=== PATIENT | female | born 1980 | race Caucasian/White ===

== ENCOUNTER 2025-05-21 07:45 | Inpatient (IN) ==
[2025-05-21] MEDS ORDERED: OXYTOCIN 30 UNITS/NSS 30 UNITS/500 ML BAG IV PRN (09:10)
[2025-05-21] MEDS ORDERED: LIDOCAINE 1% LOCAL 20 ML VIAL INFIL PRN (09:10)
[2025-05-21] MEDS ORDERED: CALCIUM CARBONATE 500 MG CHEWABLE TAB PO PRN (09:10)
--- NOTE | 2025-05-21 09:33 | History & Physical Report ---
Date of Service May 21, 2025 Assessment & Plan (1) AMA (advanced maternal age) multigravida 35+: Plan: induction of labor/Cervidil for ripening Admission and Anticipated Discharge Date Admission Date: May 21, 2025 History of Present Illness Chief Complaint: induction of labor Primary Care Provider: Em Temple DO 45 F P0000 at 39 weeks presents for IOL. GBS is negative. Allergies Allergy/AdvReac Type Severity Reaction Status Date / Time aspirin Allergy Severe Rash Verified 05/21/25 08:34 Sulfa (Sulfonamide Allergy Mild Rash Unverified 05/21/25 08:34 Antibiotics) Home Medications Medication Instructions Recorded Confirmed Type clindamycin phosphate 1 % topical 1 applic topical BID PRN Other 06/18/23 05/21/25 History gel multivitamin 1 tab PO QAM 06/18/23 05/21/25 History tretinoin 0.1 % topical cream 1 applic topical HS PRN Other 06/18/23 05/21/25 History Patient History Medical History Embryo present in uterus Embryo Transfered September 05/2025. History of PCOS Surgical History Hx of hernia repair H/O wisdom tooth extraction Social History Smoking Status: Never smoker Hx Alcohol Use: No Hx Substance Use: No Preferred Language: [place] Communication Ability: Effective Soft Sugar Cutter Required: No Beliefs That Will Affect Care: None marital status: Current Living Situation: Family Current Living Situation Comment: Patient lives with her and adopted son at home. 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 Review of Systems All systems reviewed & are unremarkable except as noted in HPI & below Physical Exam Constitutional: WD/WN, vitals as above Eyes: PERRL, conjunctivae normal, anicteric sclerae Respiratory: normal respiratory effort Cardiovascular: Rate/Rhythm: regular rate and regular rhythm Gastrointestinal (Abdomen): Inspection/Auscultation: abdomen normal to inspection Musculoskeletal: Extremities: extremities normal to inspection Skin: no rashes, warm and dry Neurologic: patellar DTR's 2+ bilat, sensation intact Psychiatric: A+Ox3, euthymic affect Genitourinary: no vaginal lesions, no adnexal mass Manual OB Exam: + cervical dilation fingertip, + cervical effacement 50% and + station high OB Exam Monitor Tracing: + external FHT monitor used, + external uterine monitor used, + category I and + normal FHT variability Cervidil 10 mg placed vaginally Results & Data Vital Signs (Past 12 Hours) Vital Signs Temp Pulse Resp BP 05/21/25 08:35 37.1 C 67 18 116/73 05/21/25 08:04 67 116/73 Laboratory Results Laboratory Results - last 72 hr 05/21/25 09:31 WBC 8.41 RBC 4.09 L Hgb 12.8 Hct 37.3 MCV 91.2 MCH 31.3 MCHC 34.3 RDW Std Deviation 44.2 RDW Coeff of Naty 13.3 Plt Count 167 MPV 11.5 Code Status & VTE Plan VTE Prophylaxis Plan VTE Prophylaxis will be ordered: No Monitoring External Monitor Cat 1 (1) AMA (advanced maternal age) multigravida 35+ Trimester: third trimester Qualified Code(s): O09.523 - Supervision of elderly multigravida, third trimester
[2025-05-21] MEDS: DINOPROSTONE 10 MG INSERT PV ONE (09:45)
[2025-05-21 09:47] LABS: Hematocrit (blood only) 37.3 % (37.0-47.0); Hemoglobin 12.8 g/dL (12.0-16.0); Mean Corpuscular Hemoglobin 31.3 pg (25.0-34.0); Mean Corpuscular Volume 91.2 fL (80.0-100.0); Platelet Count 167 K/uL (130-400); RDW Standard Deviation 44.2 fL (36.4-46.3); Red Blood Count 4.09 M/uL (4.20-5.40); White Blood Count 8.41 K/ul (4.8-10.8)
[2025-05-21] MEDS ORDERED: BUTORPHANOL TARTRATE 1 MG/ML VIAL IV PRN (13:25)
--- NOTE | 2025-05-21 21:50 | Labor Progress Brief Note ---
Date of Service May 21, 2025 Assessment & Plan Admission and Anticipated Discharge Date Admission Date: May 21, 2025 Physical Exam Genitourinary: Manual OB Exam: + cervical dilation fingertip, + cervical effacement 60% and + station high OB Exam Monitor Tracing: + external FHT monitor used, + external uterine monitor used, + category I and + normal FHT variability Cervidil removed. cervix softening. Will start Cytotec if contractions space out. Results & Data Vital Signs (Past 12 Hours) Vital Signs Temp Pulse Resp BP 05/21/25 19:50 36.8 C 16 05/21/25 19:50 61 05/21/25 19:50 123/75 05/21/25 17:07 60 05/21/25 17:07 122/75 05/21/25 17:06 18 05/21/25 17:06 36.7 C 18 05/21/25 12:49 16 05/21/25 12:49 36.9 C 16 05/21/25 12:49 62 05/21/25 12:49 129/75
[2025-05-22] MEDS: miSOPROStol 50 MCG TAB PO SCH (01:14)
[2025-05-22] MEDS: MULTIVITAMIN TAB PO SCH (08:43)
--- NOTE | 2025-05-22 09:20 | Labor Progress Brief Note ---
Date of Service May 22, 2025 Assessment & Plan Admission and Anticipated Discharge Date Admission Date: May 21, 2025 Physical Exam Genitourinary: Manual OB Exam: + cervical dilation 1 cm, + cervical effacement 50% and + station high OB Exam Monitor Tracing: + external FHT monitor used, + external uterine monitor used, + category I and + normal FHT variability Cervix softening. will continue ripening with Cytotec. Results & Data Vital Signs (Past 12 Hours) Vital Signs Temp Pulse Resp BP 05/22/25 07:04 60 121/74 05/22/25 07:03 18 05/22/25 07:03 36.7 C 18 05/22/25 04:14 36.8 C 60 16 126/75 05/21/25 22:46 18 05/21/25 22:46 36.7 C 18 05/21/25 22:46 68 05/21/25 22:46 121/68
--- NOTE | 2025-05-22 15:36 | Labor Progress Brief Note ---
Date of Service May 22, 2025 Assessment & Plan Admission and Anticipated Discharge Date Admission Date: May 21, 2025 Physical Exam Genitourinary: Manual OB Exam: + cervical dilation 1 cm, + cervical effacement 50% and + station high OB Exam Monitor Tracing: + external FHT monitor used, + external uterine monitor used, + category I and + normal FHT variability Lugo placed trans-cervically with 40 ml. saline in balloon. Will continue with Cytotec. Results & Data Vital Signs (Past 12 Hours) Vital Signs Temp Pulse Resp BP 05/22/25 15:33 65 154/88 H 05/22/25 14:53 63 118/70 05/22/25 11:06 63 126/71 05/22/25 07:04 60 121/74 05/22/25 07:03 18 05/22/25 07:03 36.7 C 18 05/22/25 04:14 36.8 C 60 16 126/75
[2025-05-22] MEDS: ACETAMINOPHEN 325 MG TAB PO PRN (19:04)
--- NOTE | 2025-05-22 20:39 | Obstetrical Progress Note ---
Date of Service May 22, 2025 Assessment & Plan Admission and Anticipated Discharge Date Admission Date: May 21, 2025 Subjective Patient seen and examined. I got signout from Dr. Saavedra who admitted her yesterday for induction of labor for postdates, AMA, IVF . She has received Cervidil for cervical ripening yesterday and continued with p.o. Cytotec today, placed Lugo balloon in the afternoon. Last dose of Cytotec was at 8 PM (5th dose) Patient has been feeling irregular contractions are not very painful yet she has not taking anything for pain. She denies leakage of fluids or vaginal bleeding. She reports good movements. Patient denies medical problems, surgeries, no history of STDs, no smoking alcohol or drug use. She was started on low- dose aspirin but unable to take it due to reaction which was rash. She has been taking vitamins only. GBS is negative. Vital signs today afebrile, heart rate category 1, Long Barn shows contractions every 2 to 6 minutes, vaginal exam, balloon is inside cervix feels very thin and about 80% effaced and 1 to 2 cm, mild traction was applied to the Lugo catheter, discussed the findings induction of labor with expectant, plan will be to start low-dose oxytocin per protocol after midnight, 4 hours from last dose of p.o. Cytotec, Discussed the pain management including IV pain medications, epidural. Patient does not want IV pain medication and plans to get epidural when she related. Continue to monitor closely, All questions were answered. Results & Data Vital Signs (Past 12 Hours) Vital Signs Temp Pulse Resp BP O2 Del Method 05/22/25 19:00 37.0 C 18 05/22/25 19:00 Room Air 05/22/25 18:59 37.0 C 71 18 126/78 05/22/25 17:29 67 134/78 05/22/25 15:34 61 140/81 05/22/25 15:33 65 154/88 H 05/22/25 15:32 18 05/22/25 15:32 36.8 C 18 05/22/25 15:32 18 05/22/25 15:32 36.7 C 18 05/22/25 14:53 63 118/70 05/22/25 11:06 63 126/71
--- NOTE | 2025-05-23 00:20 | Obstetrical Progress Note ---
Date of Service May 23, 2025 Assessment & Plan Admission and Anticipated Discharge Date Admission Date: May 21, 2025 Subjective Patient is reevaluated. She ambulated then came back. Feels irregular contractions, they are not painful at. heart rate category 1, Bedside ultrasound was done by myself and confirmed vertex presentation, placenta anterior, AFV is normal, heart rate 140s, Continue to monitor closely, Will start low-dose oxytocin per protocol to augment contractions, All questions were answered. Results & Data Vital Signs (Past 12 Hours) Vital Signs Temp Pulse Resp BP O2 Del Method 05/22/25 23:10 36.9 C 58 L 18 125/64 05/22/25 19:00 37.0 C 18 05/22/25 19:00 Room Air 05/22/25 18:59 37.0 C 71 18 126/78 05/22/25 17:29 67 134/78 05/22/25 15:34 61 140/81 05/22/25 15:33 65 154/88 H 05/22/25 15:32 18 05/22/25 15:32 36.8 C 18 05/22/25 15:32 18 05/22/25 15:32 36.7 C 18 05/22/25 14:53 63 118/70
[2025-05-23] MEDS: LACTATED RINGER'S 1,000 ML IV PRN (00:29)
[2025-05-23] MEDS: OXYTOCIN 30 UNITS/NSS 30 UNITS/500 ML BAG IV PRN (00:29)
--- NOTE | 2025-05-23 07:19 | Obstetrical Progress Note ---
Date of Service May 23, 2025 Assessment & Plan Admission and Anticipated Discharge Date Admission Date: May 21, 2025 Subjective Patient slept overnight, has not woken up with contractions. Oxytocin was started and he has been increased per protocol. she has not received anything for pain. Vital signs stable afebrile, heart rate category 1, Vaginal exam, Lugo bulb is still in, deflated 10 mL and taking out, cervix is 4 cm dilated, 50% effaced, head is at -2 station with a tight bulging bag. I offered her epidural first and then AROM but patient desired AROM now and then she will decide whether she will need epidural or not. AROM done, abundant clear fluid was obtained, patient tolerated well. Continue to monitor closely. Results & Data Vital Signs (Past 12 Hours) Vital Signs Temp Pulse Resp BP 05/23/25 07:03 59 L 113/65 05/23/25 06:30 16 05/23/25 06:30 16 05/23/25 06:00 16 05/23/25 06:00 16 05/23/25 05:31 67 115/68 05/23/25 05:30 16 05/23/25 05:30 16 05/23/25 04:31 71 120/74 05/23/25 03:33 36.9 C 61 18 126/74 05/23/25 02:23 60 134/72 05/23/25 01:30 68 126/73 05/23/25 01:00 18 05/23/25 01:00 18 05/23/25 00:29 63 130/75 05/22/25 23:10 36.9 C 58 L 18 125/64
--- NOTE | 2025-05-23 08:13 | Anesthesiology Consultation ---
Date of Service May 23, 2025 Assessment & Plan Chart Review Chart Review: Acceptable Risk for Surgery and Patient NOT seen in Pre Admission Testing Consults Requested none ASA ASA2 Proposed Anesthesia Anesthesia Type: Labor Epidural and CSE History Height/Weight Height: 5 ft 5 in Weight: 66.617 kg Allergies Allergy/AdvReac Type Severity Reaction Status Date / Time aspirin Allergy Severe Rash Verified 05/21/25 08:34 Sulfa (Sulfonamide Allergy Mild Rash Verified 05/22/25 19:03 Antibiotics) Medications Home Medications Medication Instructions Recorded Confirmed Last Taken clindamycin phosphate 1 % topical 1 applic topical BID PRN Other 06/18/23 05/21/25 05/07/25 gel multivitamin 1 tab PO QAM 06/18/23 05/21/25 05/21/25 06:30 tretinoin 0.1 % topical cream 1 applic topical HS PRN Other 06/18/23 05/21/25 Unknown Active Medications Generic Name Dose Route Start Last Admin Trade Name Freq PRN Reason Stop Dose Admin Acetaminophen 650 mg 05/21/25 13:25 05/23/25 05:43 Acetaminophen 325 Mg Tab PO 06/20/25 13:24 650 mg Q4H PRN Administration Pain Lactated Ringer's 1,000 mls @ 125 mls/hr 05/21/25 09:10 05/23/25 08:12 Lr IV 05/23/25 09:09 999 mls/hr .Q8H PRN Administration L&D Protocol Protocol Oxytocin 30 units in 500 mls @ 7 mls/hr 05/23/25 00:30 05/23/25 07:00 Pitocin 30 Units/Nss IV 05/24/25 00:29 0.48 units/hr .Q24H PRN 8 mls/hr Labor Induction/Augmentation Titration Protocol 0.42 UNITS/HR Miscellaneous 1 each 05/21/25 16:00 05/22/25 08:51 Clindamycin 1% Gel--Order Awaiting Action N/A 06/20/25 15:59 Not Given QS SCOTT Misoprostol 50 mcg 05/22/25 00:00 05/23/25 00:34 Misoprostol 50 Mcg Tab PO 06/21/25 00:00 Not Given Q4 SCOTT Multivitamins 1 tab 05/22/25 09:00 05/22/25 08:43 Multivitamin Tab PO 06/21/25 08:59 1 tab QAM SCOTT Administration Past Medical History Medical History Embryo present in uterus Embryo Transfered September 05/2025. History of PCOS Exercise / Class Metabolic Activity II 4-5 Yardwork/Stairs/Walk up hill Past Surgical History Surgical History Hx of hernia repair H/O wisdom tooth extraction Past Anesthesia History No Hx of Anesthesia Complications and No Family Hx of Anesthesia Complications History of PONV No Hx of PONV and No Hx of Motion Sickness Social History Smoking Status: Never smoker Hx Alcohol Use: No Hx Substance Use: No Physical Exam Vital Signs Last Vital Signs Temp 36.7 C 05/23/25 07:15 Pulse 80 05/23/25 08:08 Resp 18 05/23/25 07:15 BP 113/65 05/23/25 07:03 Pulse Ox 100 05/23/25 08:08 O2 Del Method Room Air 05/22/25 19:00 Testing Laboratory Results 05/21/25 09:31
[2025-05-23] MEDS ORDERED: BUPIVACAINE 0.25% PF 30 ML VIAL EPI PRN (08:51)
[2025-05-23] MEDS: BUPIVACAINE 0.25% PF 30 ML VIAL ONE (08:51)
[2025-05-23] MEDS ORDERED: NALOXONE HCL 1 MG in SODIUM CHLORIDE 0.9% 1,000 ML IV PRN (08:51)
[2025-05-23] MEDS ORDERED: NALBUPHINE HCL INJ 10 MG/ML AMP IV PRN (08:51)
[2025-05-23] MEDS ORDERED: SODIUM CHLORIDE 0.9% PF INJ 10 ML VIAL EPI PRN (08:51)
[2025-05-23] MEDS ORDERED: ROPIVACAINE 0.5% PF 5 MG/ML 20 ML VIAL EPI PRN (08:51)
[2025-05-23] MEDS: LIDOCAINE 2%/EPINEPHRINE 1:200,000 20 ML PF ONE (08:51)
[2025-05-23] MEDS ORDERED: PROMETHAZINE 6.25 MG/50.25 ML BAG IV PRN (08:51)
[2025-05-23] MEDS ORDERED: NALOXONE HCL 0.4 MG/1 ML VIAL/CARP IV PRN ×2 (08:51→16:39)
[2025-05-23] MEDS ORDERED: LIDOCAINE 2% MPF LOCAL 5 ML VIAL EPI PRN (08:51)
[2025-05-23] MEDS ORDERED: diphenhydrAMINE 50 MG/ML VIAL IV PRN (08:51)
[2025-05-23] MEDS: SODIUM CHLORIDE 0.9% PF INJ 10 ML VIAL ONE (08:52)
[2025-05-23] MEDS: fentANYL 2 MCG/ML BUPIVacaine 0.125%-NSS 100ML BAG ONE (08:53)
[2025-05-23] MEDS ORDERED: NURSING L&D Epidural Breakthrough Pain Update ONE (11:21)
[2025-05-23] MEDS: BUPIVACAINE 0.25% PF 30 ML VIAL EPI STA (12:00)
--- NOTE | 2025-05-23 12:06 | Anesthesia Procedure Note ---
Date of Service May 23, 2025 Anesthesia Epidural Re-Dose Vital Signs Temp Pulse Resp BP Pulse Ox O2 Del Method 36.9 C 69 16 139/101 H 100 Room Air 05/23/25 11:00 05/23/25 12:03 05/23/25 11:30 05/23/25 12:00 05/23/25 12:03 05/22/25 19:00 Notes Pain Intensity: 4 Dilatation (cm): 5.5 Effacement (%): 90 After Epidural Re-Dose Mental Status: alert / awake / arousable Pain: improving with treatment Airway Patency, RR, SpO2: stable & adequate BP & HR: stable & adequate Additional Notes: Pt w/labor pain; Epidural bolused w/ 12 ml 0.17% bupivacaine + 100 mcgs fentanyl using incremental asp. and injections.
[2025-05-23] MEDS: ONDANSETRON INJ 2 MG/ML 2 ML VIAL IV PRN (14:00)
[2025-05-23] MEDS: fentANYL 2 MCG/ML BUPIVacaine 0.125%-NSS 100ML BAG EPI PRN (14:11)
--- NOTE | 2025-05-23 15:20 | History & Physical Bridge Note ---
Date of Service May 23, 2025 History & Physical Bridge Note I have examined the patient, reviewed the History & Physical and in the interval since the performance of the History & Physical I have noted the following changes of clinical significance: no changes noted
--- NOTE | 2025-05-23 15:37 | Labor Progress Brief Note ---
Date of Service May 23, 2025 Subjective patient with retained placent greater than 30 minutes Assessment & Plan (1) Retained placenta or amniotic membrane after delivery without hemorrhage: Plan: Discussed with patient need to manually remove placenta in OR and possible curettage of uterus Consents signed Admission and Anticipated Discharge Date Admission Date: May 21, 2025 Results & Data Vital Signs (Past 12 Hours) Vital Signs Temp Pulse Resp BP Pulse Ox 05/23/25 15:32 96 H 126/69 05/23/25 15:17 82 126/87 05/23/25 15:02 87 134/80 05/23/25 14:57 99 H 120/77 05/23/25 14:43 80 98 05/23/25 14:38 99 H 100 05/23/25 14:33 96 H 100 05/23/25 14:32 96 H 169/103 H 05/23/25 14:30 16 05/23/25 14:30 37.0 C 16 05/23/25 14:28 88 100 05/23/25 14:22 84 100 05/23/25 14:18 91 H 100 05/23/25 14:13 113 H 98 05/23/25 14:08 104 H 96 05/23/25 14:03 102 H 98 05/23/25 14:02 100 H 130/81 05/23/25 14:00 18 05/23/25 14:00 18 05/23/25 13:58 118 H 97 05/23/25 13:53 113 H 97 05/23/25 13:48 97 H 97 05/23/25 13:43 96 H 99 05/23/25 13:38 102 H 99 05/23/25 13:33 81 96 05/23/25 13:32 76 136/82 05/23/25 13:30 16 05/23/25 13:30 16 05/23/25 13:28 77 97 05/23/25 13:23 76 97 05/23/25 13:18 98 H 99 05/23/25 13:17 85 130/83 05/23/25 13:13 78 100 05/23/25 13:08 76 100 05/23/25 13:03 80 97 05/23/25 13:02 75 131/73 05/23/25 13:00 16 05/23/25 13:00 16 05/23/25 12:58 82 99 05/23/25 12:53 82 100 05/23/25 12:48 83 125/68 100 05/23/25 12:43 85 100 05/23/25 12:37 88 98 05/23/25 12:33 82 145/74 H 99 05/23/25 12:30 16 05/23/25 12:30 36.7 C 16 05/23/25 12:28 98 H 99 05/23/25 12:23 75 99 05/23/25 12:18 71 99 05/23/25 12:16 70 124/76 05/23/25 12:14 68 125/77 05/23/25 12:13 75 99 05/23/25 12:12 71 123/74 05/23/25 12:10 68 124/78 05/23/25 12:08 72 121/71 100 05/23/25 12:05 75 124/77 05/23/25 12:04 67 133/74 05/23/25 12:03 69 100 05/23/25 12:00 70 16 139/101 H 05/23/25 11:58 72 99 05/23/25 11:53 64 100 05/23/25 11:48 65 100 05/23/25 11:45 64 113/67 05/23/25 11:42 69 100 05/23/25 11:38 62 98 05/23/25 11:36 72 90 05/23/25 11:33 65 98 05/23/25 11:30 64 16 125/66 05/23/25 11:28 66 99 05/23/25 11:23 67 100 05/23/25 11:18 65 100 05/23/25 11:14 61 122/57 L 05/23/25 11:13 60 99 05/23/25 11:08 65 99 05/23/25 11:03 73 98 05/23/25 11:00 36.9 C 61 16 119/62 94 05/23/25 10:58 60 98 05/23/25 10:53 66 95 05/23/25 10:52 62 94 05/23/25 10:48 65 97 05/23/25 10:44 61 109/62 05/23/25 10:43 62 98 05/23/25 10:38 59 L 99 05/23/25 10:33 60 95 05/23/25 10:30 62 16 106/62 05/23/25 10:28 64 96 05/23/25 10:23 61 98 05/23/25 10:18 65 98 05/23/25 10:14 58 L 122/74 05/23/25 10:13 59 L 98 05/23/25 10:08 64 93 05/23/25 10:03 61 94 05/23/25 10:00 16 05/23/25 10:00 16 05/23/25 09:59 60 112/71 05/23/25 09:58 66 94 05/23/25 09:53 59 L 95 05/23/25 09:52 60 94 05/23/25 09:48 60 95 05/23/25 09:47 65 94 05/23/25 09:45 59 L 112/69 05/23/25 09:42 62 95 05/23/25 09:38 63 95 05/23/25 09:35 66 94 05/23/25 09:33 63 95 05/23/25 09:30 16 05/23/25 09:30 16 05/23/25 09:28 65 99 05/23/25 09:24 67 108/70 05/23/25 09:23 67 99 05/23/25 09:20 65 109/66 05/23/25 09:18 65 97 05/23/25 09:15 66 112/70 05/23/25 09:13 64 97 05/23/25 09:09 72 117/68 05/23/25 09:08 72 98 05/23/25 09:04 66 117/70 05/23/25 09:03 65 99 05/23/25 09:00 36.7 C 66 16 109/67 05/23/25 08:58 65 99 05/23/25 08:54 16 05/23/25 08:54 16 05/23/25 08:53 69 114/67 99 05/23/25 08:51 71 16 115/67 05/23/25 08:49 66 119/71 05/23/25 08:48 67 99 05/23/25 08:47 64 116/66 05/23/25 08:46 16 05/23/25 08:46 16 05/23/25 08:45 71 135/83 05/23/25 08:43 85 12/13/25 08:43 87 135/84 100 05/23/25 08:41 71 143/80 H 05/23/25 08:40 71 135/81 05/23/25 08:38 77 100 05/23/25 08:33 75 100 05/23/25 08:28 74 100 05/23/25 08:23 75 95 05/23/25 08:18 77 100 05/23/25 08:13 77 100 05/23/25 08:08 80 100 05/23/25 08:03 76 100 05/23/25 07:58 72 100 05/23/25 07:15 36.7 C 18 05/23/25 07:15 36.7 C 05/23/25 07:03 59 L 113/65 05/23/25 06:30 16 05/23/25 06:30 16 05/23/25 06:00 16 05/23/25 06:00 16 05/23/25 05:31 67 115/68 05/23/25 05:30 16 05/23/25 05:30 16 05/23/25 04:31 71 120/74
[2025-05-23] MEDS ORDERED: ePHEDrine sulfate 50 MG/5 ML SYR ONE (15:48)
[2025-05-23] MEDS ORDERED: LIDOCAINE 2%/EPINEPHRINE 1:200,000 20 ML PF ONE (15:48)
[2025-05-23] MEDS ORDERED: PHENYLEPHRINE 100MCG/ML 5ML SYR ONE ×3 (15:48→16:07)
[2025-05-23] MEDS ORDERED: ONDANSETRON INJ 2 MG/ML 2 ML VIAL ONE (15:58)
[2025-05-23] MEDS ORDERED: NITROGLYCERIN 5 MG/ML 10 ML VIAL ONE (16:02)
[2025-05-23] MEDS ORDERED: METOCLOPRAMIDE HCL INJ 5 MG/ML 2 ML VIAL ONE (16:02)
[2025-05-23] MEDS ORDERED: TRANEXAMIC ACID / 0.7% NACL 1000MG/100ML BAG IV ONE (16:07)
[2025-05-23] MEDS ORDERED: OXYTOCIN 10 UNITS/ML VIAL ONE ×2 (16:12→16:26)
[2025-05-23] MEDS ORDERED: METHYLERGONOVINE MALEATE 0.2 MG/ML AMP ONE (16:14)
[2025-05-23] MEDS ORDERED: SODIUM CHLORIDE 0.9% 100 ML IV PRN (16:18)
[2025-05-23] MEDS ORDERED: ATROPINE SULFATE 0.1 MG/ML 10ML SYR IV PRN (16:39)
[2025-05-23] MEDS ORDERED: FLUMAZENIL 0.1 MG/1 ML 10 ML VIAL IV PRN (16:39)
[2025-05-23] MEDS ORDERED: ONDANSETRON INJ 2 MG/ML 2 ML VIAL IV PRN (16:39)
[2025-05-23] MEDS ORDERED: PROMETHAZINE HCL 6.25 MG in SODIUM CHLORIDE 0.9% 50 ML IV PRN (16:39)
--- NOTE | 2025-05-23 16:39 | Anesthesia Procedure Note ---
Date of Service May 23, 2025 Anesthesia Post Epidural Note Vital Signs Vital Signs: Temp Pulse Resp BP Pulse Ox O2 Del Method 37.0 C 86 16 63/24 L 98 Room Air 05/23/25 14:30 05/23/25 15:42 05/23/25 14:30 05/23/25 15:42 05/23/25 14:43 05/22/25 19:00 Pain Intensity Abdomen: Pain Intensity: 4 Notes Mental Status: alert / awake / arousable Nausea / Vomiting: adequately controlled Pain: adequately controlled Airway Patency, RR, SpO2: stable & adequate BP & HR: stable & adequate Hydration State: stable & adequate Neuraxial Anesthesia: was administered and sensory block is resolving Anesthetic Complications: no major complications apparent Epidural: Removed without complications and With tip intact
--- NOTE | 2025-05-23 17:02 | Post Operative Brief Note ---
Immediate Post Op Note Date of Surgery May 23, 2025 Pre & Post Diagnosis Operation Date: 05/23/25 15:30 Pre-Op Diagnosis: Manual removal of placenta Post-Op Diagnosis: Same as above I identified the patient and participated in the time-out.: Yes Procedure Operation Date: 05/23/25 15:30 Actual Procedures Manual removeal of placenta Curettage of Uterus repair of first degree tear Manfred Hernandez MD Surgeon Manfred Hernandez MD Milieu Counselor none Estimated Blood Loss 1,509 Findings Consistent with Post-Op Diagnosis retained placenta Fluids 1850 ml. Specimens placenta Drains Lugo Catheter Anesthesia Type Labor Epidural Complications none Disposition Accompanied Patient To Recovery: Yes Overlapping Procedure I was present for: the critical portions of procedure. I was immediately available: during the entire case. Back up surgeon: was not required during procedure.
[2025-05-23 17:07] LABS: Hematocrit (blood only) 26.1 % (37.0-47.0); Hemoglobin 8.8 g/dL (12.0-16.0)
[2025-05-23] MEDS ORDERED: OXYTOCIN 30 UNITS/NSS 30 UNITS/500 ML BAG IV PRN (17:16)
[2025-05-23] MEDS ORDERED: HYDROCORTISONE ACETATE 25 MG SUPP PR PRN (17:16)
[2025-05-23] MEDS ORDERED: TRETINOIN 0.1% TOP PRN (17:16)
--- NOTE | 2025-05-23 17:21 | Anesthesiology Progress Note ---
Date of Service May 23, 2025 Anesthesia Post Procedure Vital Signs Vital Signs: Temp Pulse Pulse Resp BP BP Pulse Ox 05/23/25 17:18 126 H 100 05/23/25 17:13 137 H 97 05/23/25 17:12 58 L 185/123 H 05/23/25 17:08 124 H 100 05/23/25 17:06 118 H 91 05/23/25 17:03 126 H 98 05/23/25 16:58 99 05/23/25 16:58 121 H 05/23/25 16:58 120 H 91/59 L 05/23/25 16:55 114 H 91 05/23/25 16:53 112 H 100 05/23/25 16:50 112 H 93/59 L 05/23/25 16:48 119 H 95 05/23/25 16:43 108 H 100 05/23/25 16:38 111 H 89/51 L 98 05/23/25 16:35 36.6 C 123 H 18 93/59 L 100 05/23/25 15:42 86 63/24 L 05/23/25 15:38 114 H 107/67 05/23/25 15:32 96 H 126/69 05/23/25 15:17 82 126/87 05/23/25 15:02 87 134/80 05/23/25 14:57 99 H 120/77 05/23/25 14:43 80 98 05/23/25 14:38 99 H 100 05/23/25 14:33 96 H 100 05/23/25 14:32 96 H 169/103 H 05/23/25 14:30 16 05/23/25 14:30 37.0 C 16 05/23/25 14:28 88 100 05/23/25 14:22 84 100 05/23/25 14:18 91 H 100 05/23/25 14:13 113 H 98 05/23/25 14:08 104 H 96 05/23/25 14:03 102 H 98 05/23/25 14:02 100 H 130/81 05/23/25 14:00 18 05/23/25 14:00 18 05/23/25 13:58 118 H 97 05/23/25 13:53 113 H 97 05/23/25 13:48 97 H 97 05/23/25 13:43 96 H 99 05/23/25 13:38 102 H 99 05/23/25 13:33 81 96 05/23/25 13:32 76 136/82 05/23/25 13:30 16 05/23/25 13:30 16 05/23/25 13:28 77 97 05/23/25 13:23 76 97 05/23/25 13:18 98 H 99 05/23/25 13:17 85 130/83 05/23/25 13:13 78 100 05/23/25 13:08 76 100 05/23/25 13:03 80 97 05/23/25 13:02 75 131/73 05/23/25 13:00 16 05/23/25 13:00 16 05/23/25 12:58 82 99 05/23/25 12:53 82 100 05/23/25 12:48 83 125/68 100 05/23/25 12:43 85 100 05/23/25 12:37 88 98 05/23/25 12:33 82 145/74 H 99 05/23/25 12:30 16 05/23/25 12:30 36.7 C 16 05/23/25 12:28 98 H 99 05/23/25 12:23 75 99 05/23/25 12:18 71 99 05/23/25 12:16 70 124/76 05/23/25 12:14 68 125/77 05/23/25 12:13 75 99 05/23/25 12:12 71 123/74 05/23/25 12:10 68 124/78 05/23/25 12:08 72 121/71 100 05/23/25 12:05 75 124/77 05/23/25 12:04 67 133/74 05/23/25 12:03 69 100 05/23/25 12:00 70 16 139/101 H 05/23/25 11:58 72 99 05/23/25 11:53 64 100 05/23/25 11:48 65 100 05/23/25 11:45 64 113/67 05/23/25 11:42 69 100 05/23/25 11:38 62 98 05/23/25 11:36 72 90 05/23/25 11:33 65 98 05/23/25 11:30 64 16 125/66 05/23/25 11:28 66 99 05/23/25 11:23 67 100 05/23/25 11:18 65 100 05/23/25 11:14 61 122/57 L 05/23/25 11:13 60 99 05/23/25 11:08 65 99 05/23/25 11:03 73 98 05/23/25 11:00 36.9 C 61 16 119/62 94 05/23/25 10:58 60 98 05/23/25 10:53 66 95 05/23/25 10:52 62 94 05/23/25 10:48 65 97 05/23/25 10:44 61 109/62 05/23/25 10:43 62 98 05/23/25 10:38 59 L 99 05/23/25 10:33 60 95 05/23/25 10:30 62 16 106/62 05/23/25 10:28 64 96 05/23/25 10:23 61 98 05/23/25 10:18 65 98 05/23/25 10:14 58 L 122/74 05/23/25 10:13 59 L 98 05/23/25 10:08 64 93 05/23/25 10:03 61 94 05/23/25 10:00 16 05/23/25 10:00 16 05/23/25 09:59 60 112/71 05/23/25 09:58 66 94 05/23/25 09:53 59 L 95 05/23/25 09:52 60 94 05/23/25 09:48 60 95 05/23/25 09:47 65 94 05/23/25 09:45 59 L 112/69 05/23/25 09:42 62 95 05/23/25 09:38 63 95 05/23/25 09:35 66 94 05/23/25 09:33 63 95 05/23/25 09:30 16 05/23/25 09:30 16 05/23/25 09:28 65 99 05/23/25 09:24 67 108/70 05/23/25 09:23 67 99 05/23/25 09:20 65 109/66 05/23/25 09:18 65 97 05/23/25 09:15 66 112/70 05/23/25 09:13 64 97 05/23/25 09:09 72 117/68 05/23/25 09:08 72 98 05/23/25 09:04 66 117/70 05/23/25 09:03 65 99 05/23/25 09:00 36.7 C 66 16 109/67 05/23/25 08:58 65 99 05/23/25 08:54 16 05/23/25 08:54 16 05/23/25 08:53 69 114/67 99 05/23/25 08:51 71 16 115/67 05/23/25 08:49 66 119/71 05/23/25 08:48 67 99 05/23/25 08:47 64 116/66 05/23/25 08:46 16 05/23/25 08:46 16 05/23/25 08:45 71 135/83 05/23/25 08:43 85 05/23/25 08:43 87 135/84 100 05/23/25 08:41 71 143/80 H 05/23/25 08:40 71 135/81 05/23/25 08:38 77 100 05/23/25 08:33 75 100 05/23/25 08:28 74 100 05/23/25 08:23 75 95 05/23/25 08:18 77 100 05/23/25 08:13 77 100 05/23/25 08:08 80 100 05/23/25 08:03 76 100 05/23/25 07:58 72 100 05/23/25 07:15 36.7 C 18 05/23/25 07:15 36.7 C 05/23/25 07:03 59 L 113/65 05/23/25 06:30 16 05/23/25 06:30 16 05/23/25 06:00 16 05/23/25 06:00 16 05/23/25 05:31 67 115/68 05/23/25 05:30 16 05/23/25 05:30 16 05/23/25 04:31 71 120/74 05/23/25 03:33 36.9 C 61 18 126/74 05/23/25 02:23 60 134/72 05/23/25 01:30 68 126/73 05/23/25 01:00 18 05/23/25 01:00 18 05/23/25 00:29 63 130/75 05/22/25 23:10 36.9 C 58 L 18 125/64 05/22/25 19:00 37.0 C 18 05/22/25 19:00 05/22/25 18:59 37.0 C 71 18 126/78 05/22/25 17:29 67 134/78 O2 Del Method 05/23/25 17:18 05/23/25 17:13 05/23/25 17:12 05/23/25 17:08 05/23/25 17:06 05/23/25 17:03 05/23/25 16:58 05/23/25 16:58 05/23/25 16:58 05/23/25 16:55 05/23/25 16:53 05/23/25 16:50 05/23/25 16:48 05/23/25 16:43 05/23/25 16:38 05/23/25 16:35 Room Air 05/23/25 15:42 05/23/25 15:38 05/23/25 15:32 05/23/25 15:17 05/23/25 15:02 05/23/25 14:57 05/23/25 14:43 05/23/25 14:38 05/23/25 14:33 05/23/25 14:32 05/23/25 14:30 05/23/25 14:30 05/23/25 14:28 05/23/25 14:22 05/23/25 14:18 05/23/25 14:13 05/23/25 14:08 05/23/25 14:03 05/23/25 14:02 05/23/25 14:00 05/23/25 14:00 05/23/25 13:58 05/23/25 13:53 05/23/25 13:48 05/23/25 13:43 05/23/25 13:38 05/23/25 13:33 05/23/25 13:32 05/23/25 13:30 05/23/25 13:30 05/23/25 13:28 05/23/25 13:23 05/23/25 13:18 05/23/25 13:17 05/23/25 13:13 05/23/25 13:08 05/23/25 13:03 05/23/25 13:02 05/23/25 13:00 05/23/25 13:00 05/23/25 12:58 05/23/25 12:53 05/23/25 12:48 05/23/25 12:43 05/23/25 12:37 05/23/25 12:33 05/23/25 12:30 05/23/25 12:30 05/23/25 12:28 05/23/25 12:23 05/23/25 12:18 05/23/25 12:16 05/23/25 12:14 05/23/25 12:13 05/23/25 12:12 05/23/25 12:10 05/23/25 12:08 05/23/25 12:05 05/23/25 12:04 05/23/25 12:03 05/23/25 12:00 05/23/25 11:58 05/23/25 11:53 05/23/25 11:48 05/23/25 11:45 05/23/25 11:42 05/23/25 11:38 05/23/25 11:36 05/23/25 11:33 05/23/25 11:30 05/23/25 11:28 05/23/25 11:23 05/23/25 11:18 05/23/25 11:14 05/23/25 11:13 05/23/25 11:08 05/23/25 11:03 05/23/25 11:00 05/23/25 10:58 05/23/25 10:53 05/23/25 10:52 05/23/25 10:48 05/23/25 10:44 05/23/25 10:43 05/23/25 10:38 05/23/25 10:33 05/23/25 10:30 05/23/25 10:28 05/23/25 10:23 05/23/25 10:18 05/23/25 10:14 05/23/25 10:13 05/23/25 10:08 05/23/25 10:03 05/23/25 10:00 05/23/25 10:00 05/23/25 09:59 05/23/25 09:58 05/23/25 09:53 05/23/25 09:52 05/23/25 09:48 05/23/25 09:47 05/23/25 09:45 05/23/25 09:42 05/23/25 09:38 05/23/25 09:35 05/23/25 09:33 05/23/25 09:30 05/23/25 09:30 05/23/25 09:28 05/23/25 09:24 05/23/25 09:23 05/23/25 09:20 05/23/25 09:18 05/23/25 09:15 05/23/25 09:13 05/23/25 09:09 05/23/25 09:08 05/23/25 09:04 05/23/25 09:03 05/23/25 09:00 05/23/25 08:58 05/23/25 08:54 05/23/25 08:54 05/23/25 08:53 05/23/25 08:51 05/23/25 08:49 05/23/25 08:48 05/23/25 08:47 05/23/25 08:46 05/23/25 08:46 05/23/25 08:45 05/23/25 08:43 05/23/25 08:43 05/23/25 08:41 05/23/25 08:40 05/23/25 08:38 05/23/25 08:33 05/23/25 08:28 05/23/25 08:23 05/23/25 08:18 05/23/25 08:13 05/23/25 08:08 05/23/25 08:03 05/23/25 07:58 05/23/25 07:15 05/23/25 07:15 05/23/25 07:03 05/23/25 06:30 05/23/25 06:30 05/23/25 06:00 05/23/25 06:00 05/23/25 05:31 05/23/25 05:30 05/23/25 05:30 05/23/25 04:31 05/23/25 03:33 05/23/25 02:23 05/23/25 01:30 05/23/25 01:00 05/23/25 01:00 05/23/25 00:29 05/22/25 23:10 05/22/25 19:00 05/22/25 19:00 Room Air 05/22/25 18:59 05/22/25 17:29 Pain Intensity Abdomen: Pain Intensity: 4 Transfer of Care Handoff Completed per policy Notes Mental Status: alert / awake / arousable Patient Amnestic to Procedure: Yes Nausea / Vomiting: adequately controlled Pain: adequately controlled Airway Patency, RR, SpO2: stable & adequate BP & HR: stable & adequate Hydration State: stable & adequate Neuraxial Anesthesia: sensory block is resolving Anesthetic Complications: no major complications apparent
--- NOTE | 2025-05-23 17:32 | Delivery Summary ---
Vaginal Delivery Summary Date of Service May 23, 2025 Vaginal Delivery Summary live male MICKEY with delayed cord clamping. Cord blood obtained. Placenta not delivered after 30 minutes. Patient brought to the OR for manual removal of placenta.
--- NOTE | 2025-05-23 17:36 | Operative Report ---
Post Operative Report Pre & Post Diagnosis Operation Date: 05/23/25 15:30 Pre-Op Diagnosis: Manual removal of placenta Post-Op Diagnosis: Same as above I identified the patient and participated in the time-out.: Yes Procedure Operation Date: 05/23/25 15:30 Actual Procedures p Dilatation and Curettage - Manfred Hernandez MD Surgeon Manfred Hernandez MD Channeler none Estimated Blood Loss 1,509 Findings Consistent with Post-Op Diagnosis retained placenta Fluids 1850 ml. total Specimens placenta Drains Lugo Anesthesia Type Labor Epidural Complications nonfe Disposition Accompanied Patient To Recovery: Yes Indications retained placenta and bleeding Description of Procedure Under satisfactory epidural the patient was placed in dorsal lithotomy position she was prepped and draped in the usual sterile fashion. The bladder was emptied prior to coming back to the OR in the delivery room. A timeout was called. Patient received antibiotics prior to the procedure. A gloved hand was then placed into the uterine cavity removing of the placenta and several pieces. The placenta was found to be adherent to the wall of the uterus after the placenta was removed the large banjo curette was introduced into the uterine cavity curetting out minimal amounts of tissue a ring forceps were then used grasping minimal tissue noted. The patient I had a quick ultrasound by me in the OR revealing the uterine stripe to be very thin. No active bleeding was noted the uterus was firm below the U she was given TXA in the OR she was also given Methergine IM in the OR and then following this procedure she was not having any bleeding and the uterus was firm. At the initial sponge needle instrument count were found to be correct. A small tear was noted at the introitus which was repaired with 3-0 Vicryl suture. At the end of this procedure 1000 mcg of Cytotec was placed rectally. Pitocin was running. The uterus was firm. The final sponge needle and instrument count were found to be correct the patient was stable a Lugo catheter was placed at the end of the procedure and she was moved to recovery room in stable condition. I attest to the content of the Intraoperative Record and any orders documented therein. Any exceptions are noted below.
[2025-05-23] MEDS: OXYTOCIN 20 UNITS/1002ML LR IV ONE (17:57)
[2025-05-23] MEDS: LIDOCAINE 2%/EPINEPHRINE 1:200,000 20 ML PF EPI STA (19:20)
[2025-05-23] MEDS: SODIUM CHLORIDE 0.9% PF INJ 10 ML VIAL EPI STA (19:20)
[2025-05-23] MEDS: DIPHTHER/TETAN/PERTUS Vaccine (Tdap, Adol/Adult) 0.5mL IM ONE (19:31)
[2025-05-23] MEDS: BENZOCAINE 20% SPRY 85 APPLN/85 GM CAN EXT PRN (19:43)
[2025-05-23] MEDS: DOCUSATE SODIUM 100 MG CAP PO SCH (20:53)
[2025-05-23 22:59] LABS: Hematocrit (blood only) 20.0 % (37.0-47.0); Hemoglobin 6.8 g/dL (12.0-16.0); Mean Corpuscular Hemoglobin 31.3 pg (25.0-34.0); Mean Corpuscular Volume 92.2 fL (80.0-100.0); Platelet Count 123 K/uL (130-400); RDW Standard Deviation 44.1 fL (36.4-46.3); Red Blood Count 2.17 M/uL (4.20-5.40); White Blood Count 18.97 K/ul (4.8-10.8)
[2025-05-23 23:18] LABS: Immature Granulocytes # (auto) 0.11 K/uL (0.01-0.20); Immature Granulocytes % (auto) 0.6 %; Polychromasia 1+
[2025-05-24] MEDS: ACETAMINOPHEN 325 MG TAB PO PRN (06:02)
[2025-05-24 06:57] LABS: Hematocrit (blood only) 18.2 % (37.0-47.0); Hemoglobin 6.2 g/dL (12.0-16.0); Mean Corpuscular Hemoglobin 30.8 pg (25.0-34.0); Mean Corpuscular Volume 90.5 fL (80.0-100.0); Platelet Count 118 K/uL (130-400); RDW Standard Deviation 44.1 fL (36.4-46.3); Red Blood Count 2.01 M/uL (4.20-5.40); White Blood Count 14.01 K/ul (4.8-10.8)
[2025-05-24] MEDS: PRENATAL VITAMIN 1 TAB PO SCH (08:27)
[2025-05-24] MEDS: FERROUS SULFATE 325 MG TAB PO SCH (08:27)
[2025-05-24] MEDS ORDERED: SODIUM CHLORIDE 0.9% 100 ML IV PRN (08:49)
--- NOTE | 2025-05-24 09:57 | Obstetrical Progress Note ---
Date of Service May 24, 2025 Assessment & Plan (1) PPH ( hemorrhage): will give 1 unit PRBC's to start and check H/H 2 hours after hemorrhage type: third-stage Qualified Code(s): O72.0 - Third-stage hemorrhage Subjective Ambulation: limited ambulation Voiding: morales catheter in place Passing Gas:: Yes Diet Tolerance:: regular diet Lochia:: Small Feeding Type:: breast feeding Current Pain Level(1-10): 0 doing better. tolerating her diet. No SOB or dizziness noted by patient. Physical Exam Constitutional WD/WN, vitals as above Gastrointestinal (Abdomen) Inspection/Auscultation: abdomen normal to inspection abdomen soft and non-tender. fundus firm below U. Musculoskeletal Extremities: extremities normal to inspection Skin no rashes, warm and dry Neurologic patellar DTR's 2+ bilat, sensation intact Psychiatric A+Ox3, euthymic affect Genitourinary no bleeding noted. no passage of any clots. Results & Data Vital Signs (Past 12 Hours) Vital Signs Temp Pulse Resp BP Pulse Ox 05/24/25 09:50 36.8 C 88 20 107/67 98 05/24/25 09:50 86 107/67 05/24/25 09:49 88 97 05/24/25 09:44 82 97 05/24/25 09:39 82 97 05/24/25 09:35 37.0 C 83 20 108/60 98 05/24/25 09:34 84 98 05/24/25 09:29 90 97 05/24/25 09:27 85 108/60 05/24/25 09:24 89 97 05/24/25 09:19 90 97 05/24/25 09:14 94 H 99 05/24/25 09:09 95 H 98 05/24/25 09:04 96 H 98 05/24/25 08:59 88 97 05/24/25 08:54 98 H 98 05/24/25 08:49 87 98 05/24/25 08:44 89 97 05/24/25 08:39 88 97 05/24/25 08:34 81 99 05/24/25 08:29 94 H 97 05/24/25 08:24 92 H 97 05/24/25 08:19 82 97 05/24/25 08:14 78 98 05/24/25 08:09 91 H 98 05/24/25 08:04 79 98 05/24/25 07:59 85 95 05/24/25 07:54 83 98 05/24/25 07:49 80 97 05/24/25 07:44 83 98 05/24/25 07:39 82 99 05/24/25 07:34 90 99 05/24/25 07:30 37.0 C 84 18 104/57 L 99 05/24/25 07:28 83 99 05/24/25 07:23 94 H 99 05/24/25 07:18 88 99 05/24/25 07:15 89 104/57 L 05/24/25 07:14 88 109/56 L 05/24/25 07:13 98 H 99 05/24/25 07:08 90 97 05/24/25 07:03 78 95 05/24/25 06:58 75 96 05/24/25 06:53 80 97 05/24/25 06:48 104 H 99 05/24/25 06:43 107 H 99 05/24/25 06:38 81 99 05/24/25 06:33 81 97 05/24/25 06:28 100 H 97 05/24/25 06:23 86 98 05/24/25 06:18 78 98 05/24/25 06:13 89 98 05/24/25 06:08 87 98 05/24/25 06:03 87 110/58 L 98 05/24/25 05:58 89 98 05/24/25 05:53 90 97 05/24/25 05:48 91 H 98 05/24/25 05:43 88 97 05/24/25 05:38 95 H 97 05/24/25 05:33 84 96 05/24/25 05:28 85 97 05/24/25 05:23 87 98 05/24/25 05:18 98 H 96 05/24/25 05:13 90 98 05/24/25 05:08 91 H 98 05/24/25 05:03 88 98 05/24/25 04:58 85 97 05/24/25 04:53 88 98 05/24/25 04:48 82 98 05/24/25 04:43 86 97 05/24/25 04:38 82 98 05/24/25 04:33 84 97 05/24/25 04:28 82 100 05/24/25 04:23 92 H 100 05/24/25 04:18 91 H 99 05/24/25 04:13 85 100 05/24/25 04:11 104 H 93 05/24/25 04:08 80 98 05/24/25 04:07 80 104/55 L 05/24/25 04:03 99 H 97 05/24/25 04:00 37.2 C 83 18 104/55 L 97 05/24/25 03:59 77 94 05/24/25 03:58 79 95 05/24/25 03:53 81 94 05/24/25 03:48 75 94 05/24/25 03:46 78 94 05/24/25 03:43 78 94 05/24/25 03:41 82 94 05/24/25 03:38 81 94 05/24/25 03:33 77 94 05/24/25 03:28 76 94 05/24/25 03:23 78 94 05/24/25 03:18 79 94 05/24/25 03:16 77 94 05/24/25 03:13 77 94 05/24/25 03:08 78 95 05/24/25 03:03 76 95 05/24/25 02:58 98 H 100 05/24/25 02:53 105 H 98 05/24/25 02:48 107 H 97 05/24/25 02:43 78 95 05/24/25 02:38 79 96 05/24/25 02:35 80 94 05/24/25 02:33 92 H 98 05/24/25 02:28 101 H 97 05/24/25 02:23 96 H 99 05/24/25 02:18 92 H 98 05/24/25 02:13 96 05/24/25 02:13 95 H 05/24/25 02:13 94 H 119/59 L 05/24/25 02:08 99 H 100 05/24/25 02:03 89 98 05/24/25 01:58 91 H 98 05/24/25 01:53 95 H 98 05/24/25 01:48 94 H 97 05/24/25 01:43 95 H 98 05/24/25 01:38 97 H 98 05/24/25 01:33 92 H 97 05/24/25 01:28 92 H 98 05/24/25 01:23 108 H 98 05/24/25 01:18 100 H 97 05/24/25 01:13 94 H 98 05/24/25 01:08 99 H 98 05/24/25 01:03 94 H 98 05/24/25 00:58 96 H 98 05/24/25 00:53 92 H 98 05/24/25 00:48 96 H 96 05/24/25 00:43 95 H 98 05/24/25 00:38 98 H 98 05/24/25 00:33 101 H 98 05/24/25 00:28 98 H 97 05/24/25 00:27 83 104/63 05/24/25 00:23 102 H 99 05/24/25 00:18 103 H 100 05/24/25 00:13 99 H 100 05/24/25 00:11 91 H 93 05/24/25 00:08 100 H 99 05/24/25 00:03 88 96 05/23/25 23:58 94 H 97 05/23/25 23:53 90 97 05/23/25 23:48 100 H 98 05/23/25 23:46 106 H 104/67 05/23/25 23:45 37.0 C 85 16 104/67 94 05/23/25 23:45 85 94 05/23/25 23:43 85 94 05/23/25 23:39 90 94 05/23/25 23:38 93 H 95 05/23/25 23:33 91 H 94 05/23/25 23:28 86 94 05/23/25 23:27 94 H 94 05/23/25 23:23 83 95 05/23/25 23:22 88 94 1325 23:18 88 95 25 23:16 84 94 13 23:13 88 95 05/23/25 23:08 87 95 05/23/25 23:03 91 H 95 25 22:58 83 96 25 22:53 82 96 25 22:48 88 98 05/23/25 22:43 105 H 97 05/23/25 22:38 110 H 98 05/23/25 22:33 83 95 25 22:28 84 95 1325 22:27 88 91/50 L 05/23/25 22:23 87 95 05/23/25 22:18 85 95 05/23/25 22:15 85 94 05/23/25 22:13 86 95 05/23/25 22:08 87 95 05/23/25 22:03 86 95 05/23/25 22:01 84 94 05/23/25 21:58 81 95 Laboratory Results Laboratory Results - last 72 hr 05/21/25 05/23/25 05/23/25 09:31 16:55 17:56 WBC RBC Hgb 8.8 L Hct 26.1 L MCV MCH MCHC RDW Std Deviation RDW Coeff of Naty Plt Count MPV Immature Gran % (Auto) Neut % (Auto) Lymph % (Auto) [place] % (Auto) Eos % (Auto) Baso % (Auto) Neut # (Auto) Lymph # (Auto) [place] # (Auto) Eos # (Auto) Baso # (Auto) Immature Gran # (Auto) Polychromasia Treponema pallidum Ab Negative Blood Type O Positive Blood Type Recheck O Positive Antibody Screen NEGATIVE Crossmatch See Detail 05/23/25 05/24/25 22:38 06:16 WBC 18.97 H 14.01 H RBC 2.17 L 2.01 L Hgb 6.8 L* 6.2 L* Hct 20.0 L* 18.2 L* MCV 92.2 90.5 MCH 31.3 30.8 MCHC 34.0 34.1 RDW Std Deviation 44.1 44.1 RDW Coeff of Naty 13.4 13.4 Plt Count 123 L 118 L MPV 11.3 11.7 Immature Gran % (Auto) 0.6 Neut % (Auto) 88.9 Lymph % (Auto) 5.3 [place] % (Auto) 5.0 Eos % (Auto) 0.0 Baso % (Auto) 0.2 Neut # (Auto) 16.89 H Lymph # (Auto) 1.00 L [place] # (Auto) 0.94 H Eos # (Auto) 0.00 Baso # (Auto) 0.03 Immature Gran # (Auto) 0.11 Polychromasia 1+ Treponema pallidum Ab Blood Type Blood Type Recheck Antibody Screen Crossmatch
[2025-05-24] MEDS: miSOPROStol 200 MCG TAB ONE (11:03)
[2025-05-24 12:37] LABS: Hematocrit (blood only) 22.0 % (37.0-47.0); Hemoglobin 7.7 g/dL (12.0-16.0)
[2025-05-24] MEDS: IBUPROFEN 600 MG TAB PO PRN (18:30)
[2025-05-25 06:39] LABS: Hematocrit (blood only) 20.5 % (37.0-47.0); Hemoglobin 7.0 g/dL (12.0-16.0); Mean Corpuscular Hemoglobin 31.3 pg (25.0-34.0); Mean Corpuscular Volume 91.5 fL (80.0-100.0); Platelet Count 119 K/uL (130-400); RDW Standard Deviation 45.3 fL (36.4-46.3); Red Blood Count 2.24 M/uL (4.20-5.40); White Blood Count 11.88 K/ul (4.8-10.8)
[2025-05-25 07:01] LABS: Immature Granulocytes # (auto) 0.13 K/uL (0.01-0.20); Immature Granulocytes % (auto) 1.1 %; RBC Morphology Unremarkable
[2025-05-25] MEDS ORDERED: SODIUM CHLORIDE 0.9% 100 ML IV PRN ×2 (08:06→08:57)
[2025-05-25] MEDS ORDERED: diphenhydrAMINE Capsule 25 MG CAP PO PRN (08:07)
--- NOTE | 2025-05-25 08:41 | Obstetrical Progress Note ---
Date of Service May 25, 2025 Assessment & Plan Admission and Anticipated Discharge Date Admission Date: May 21, 2025 Subjective Patient is seen and examined. She feels okay but tired. Ambulating without dizziness Voiding without difficulty Tolerating regular diet with out N&V Bleeding is minimal No fever/ chills/ CP/ SOB/ N&V/ Leg pain Breast feeding without problems Vital Signs Temp Pulse Pulse Resp BP BP Pulse Ox 05/25/25 03:32 36.7 C 76 16 108/67 97 05/24/25 23:22 36.7 C 77 16 109/68 97 05/24/25 21:00 36.6 C 82 16 114/70 98 05/24/25 15:46 05/24/25 15:46 36.7 C 90 16 128/80 100 05/24/25 13:14 89 97 05/24/25 13:09 86 98 05/24/25 13:04 87 98 05/24/25 12:59 83 97 05/24/25 12:54 91 H 98 05/24/25 12:49 88 99 05/24/25 12:44 89 98 05/24/25 12:39 91 H 97 05/24/25 12:34 92 H 99 05/24/25 12:29 84 97 05/24/25 12:24 94 H 99 05/24/25 12:20 84 112/66 05/24/25 12:19 85 99 05/24/25 12:14 89 98 05/24/25 12:09 90 98 05/24/25 12:05 83 121/63 05/24/25 12:04 84 97 05/24/25 11:59 90 98 05/24/25 11:54 90 98 05/24/25 11:49 88 98 05/24/25 11:44 97 H 99 05/24/25 11:39 80 99 05/24/25 11:35 36.8 C 78 20 124/73 99 05/24/25 11:35 78 124/73 05/24/25 11:34 80 99 05/24/25 11:29 91 H 99 05/24/25 11:24 87 99 05/24/25 11:20 82 113/70 05/24/25 11:19 88 100 05/24/25 11:15 20 100 05/24/25 11:14 81 100 05/24/25 11:09 80 98 05/24/25 11:05 81 107/65 05/24/25 11:04 79 98 05/24/25 10:59 80 98 05/24/25 10:54 81 97 05/24/25 10:50 36.8 C 75 20 104/63 99 05/24/25 10:50 75 104/63 05/24/25 10:49 77 99 05/24/25 10:44 88 97 05/24/25 10:39 78 97 05/24/25 10:35 81 116/60 05/24/25 10:34 81 98 05/24/25 10:29 88 98 05/24/25 10:24 89 97 05/24/25 10:20 36.8 C 84 20 106/62 98 05/24/25 10:20 81 106/62 05/24/25 10:19 82 97 05/24/25 10:14 85 97 05/24/25 10:09 98 H 96 05/24/25 10:05 36.7 C 83 20 111/60 97 05/24/25 10:05 83 111/60 05/24/25 10:04 84 97 05/24/25 09:59 85 97 05/24/25 09:54 83 97 05/24/25 09:50 36.8 C 88 20 107/67 98 05/24/25 09:50 86 107/67 05/24/25 09:49 88 97 05/24/25 09:44 82 97 05/24/25 09:39 82 97 05/24/25 09:35 37.0 C 83 20 108/60 98 05/24/25 09:34 84 98 05/24/25 09:29 90 97 05/24/25 09:27 85 108/60 05/24/25 09:24 89 97 05/24/25 09:19 90 97 05/24/25 09:14 94 H 99 05/24/25 09:09 95 H 98 05/24/25 09:04 96 H 98 05/24/25 08:59 88 97 05/24/25 08:54 98 H 98 05/24/25 08:49 87 98 05/24/25 08:44 89 97 O2 Del Method 05/25/25 03:32 Room Air 05/24/25 23:22 Room Air 05/24/25 21:00 Room Air 05/24/25 15:46 Room Air 05/24/25 15:46 Room Air 05/24/25 13:14 05/24/25 13:09 05/24/25 13:04 05/24/25 12:59 05/24/25 12:54 05/24/25 12:49 05/24/25 12:44 05/24/25 12:39 05/24/25 12:34 05/24/25 12:29 05/24/25 12:24 05/24/25 12:20 05/24/25 12:19 05/24/25 12:14 05/24/25 12:09 05/24/25 12:05 05/24/25 12:04 05/24/25 11:59 05/24/25 11:54 05/24/25 11:49 05/24/25 11:44 05/24/25 11:39 05/24/25 11:35 05/24/25 11:35 05/24/25 11:34 05/24/25 11:29 05/24/25 11:24 05/24/25 11:20 05/24/25 11:19 05/24/25 11:15 05/24/25 11:14 05/24/25 11:09 05/24/25 11:05 05/24/25 11:04 05/24/25 10:59 05/24/25 10:54 05/24/25 10:50 05/24/25 10:50 05/24/25 10:49 05/24/25 10:44 05/24/25 10:39 05/24/25 10:35 05/24/25 10:34 05/24/25 10:29 05/24/25 10:24 05/24/25 10:20 05/24/25 10:20 05/24/25 10:19 05/24/25 10:14 05/24/25 10:09 05/24/25 10:05 05/24/25 10:05 05/24/25 10:04 05/24/25 09:59 05/24/25 09:54 05/24/25 09:50 05/24/25 09:50 05/24/25 09:49 05/24/25 09:44 05/24/25 09:39 05/24/25 09:35 05/24/25 09:34 05/24/25 09:29 05/24/25 09:27 05/24/25 09:24 05/24/25 09:19 05/24/25 09:14 05/24/25 09:09 05/24/25 09:04 05/24/25 08:59 05/24/25 08:54 05/24/25 08:49 05/24/25 08:44 Intake and Output 05/24/25 05/25/25 05/25/25 22:59 06:59 14:59 Output Total 525 / 3725 Balance -525 / -3415 Output: Urine 525 / 525 Lab Results 05/21/25 05/23/25 05/23/25 Range/Units 09:31 16:55 17:56 WBC 8.41 (4.8-10.8) K/ul RBC 4.09 L (4.20-5.40) M/uL Hgb 12.8 8.8 L (12.0-16.0) g/dL Hct 37.3 26.1 L (37.0-47.0) % MCV 91.2 (80.0-100.0) fL MCH 31.3 (25.0-34.0) pg MCHC 34.3 (32.0-36.0) g/dL RDW Std Deviation 44.2 (36.4-46.3) fL RDW Coeff of Naty 13.3 (11.5-14.5) % Plt Count 167 (130-400) K/uL MPV 11.5 (9.4-12.4) fL Immature Gran % (Auto) % Neut % (Auto) % Lymph % (Auto) % [place] % (Auto) % Eos % (Auto) % Baso % (Auto) % Neut # (Auto) (1.40-6.50) K/uL Lymph # (Auto) (1.20-3.40) K/uL [place] # (Auto) (0.11-0.59) K/uL Eos # (Auto) (0.00-0.50) K/uL Baso # (Auto) (0.00-0.20) K/uL Immature Gran # (Auto) (0.01-0.20) K/uL RBC Morphology Polychromasia Treponema pallidum Ab Negative (Negative) Blood Type O Positive Blood Type Recheck O Positive Antibody Screen NEGATIVE Crossmatch See Detail 05/23/25 05/24/25 05/24/25 Range/Units 22:38 06:16 12:22 WBC 18.97 H 14.01 H (4.8-10.8) K/ul RBC 2.17 L 2.01 L (4.20-5.40) M/uL Hgb 6.8 L* 6.2 L* 7.7 L (12.0-16.0) g/dL Hct 20.0 L* 18.2 L* 22.0 L (37.0-47.0) % MCV 92.2 90.5 (80.0-100.0) fL MCH 31.3 30.8 (25.0-34.0) pg MCHC 34.0 34.1 (32.0-36.0) g/dL RDW Std Deviation 44.1 44.1 (36.4-46.3) fL RDW Coeff of Naty 13.4 13.4 (11.5-14.5) % Plt Count 123 L 118 L (130-400) K/uL MPV 11.3 11.7 (9.4-12.4) fL Immature Gran % (Auto) 0.6 % Neut % (Auto) 88.9 % Lymph % (Auto) 5.3 % [place] % (Auto) 5.0 % Eos % (Auto) 0.0 % Baso % (Auto) 0.2 % Neut # (Auto) 16.89 H (1.40-6.50) K/uL Lymph # (Auto) 1.00 L (1.20-3.40) K/uL [place] # (Auto) 0.94 H (0.11-0.59) K/uL Eos # (Auto) 0.00 (0.00-0.50) K/uL Baso # (Auto) 0.03 (0.00-0.20) K/uL Immature Gran # (Auto) 0.11 (0.01-0.20) K/uL RBC Morphology Polychromasia 1+ Treponema pallidum Ab (Negative) Blood Type Blood Type Recheck Antibody Screen Crossmatch 05/25/25 Range/Units 05:49 WBC 11.88 H (4.8-10.8) K/ul RBC 2.24 L (4.20-5.40) M/uL Hgb 7.0 L (12.0-16.0) g/dL Hct 20.5 L* (37.0-47.0) % MCV 91.5 (80.0-100.0) fL MCH 31.3 (25.0-34.0) pg MCHC 34.1 (32.0-36.0) g/dL RDW Std Deviation 45.3 (36.4-46.3) fL RDW Coeff of Naty 13.8 (11.5-14.5) % Plt Count 119 L (130-400) K/uL MPV 11.0 (9.4-12.4) fL Immature Gran % (Auto) 1.1 % Neut % (Auto) 77.7 % Lymph % (Auto) 13.1 % [place] % (Auto) 7.2 % Eos % (Auto) 0.6 % Baso % (Auto) 0.3 % Neut # (Auto) 9.22 H (1.40-6.50) K/uL Lymph # (Auto) 1.56 (1.20-3.40) K/uL [place] # (Auto) 0.86 H (0.11-0.59) K/uL Eos # (Auto) 0.07 (0.00-0.50) K/uL Baso # (Auto) 0.04 (0.00-0.20) K/uL Immature Gran # (Auto) 0.13 (0.01-0.20) K/uL RBC Morphology Unremarkable Polychromasia Treponema pallidum Ab (Negative) Blood Type Blood Type Recheck Antibody Screen Crossmatch PE: General: Alert, orientedx3, NAD Abd: soft, NT, fundus firm, below Umbilicus Perineum intact, Lochia rubra minimal Ext; NT, no edema AP: 45 yo s/p , and Manual removal of placenta in OR, PPH, ppd# 2 S/P 1 unit of RBCC FOR PPH, still anemic, symptomatic, discussed another unit and accepted VSS Afebrile doing well Continue routine care All questions were answered D/C home in the afternoon Results & Data Vital Signs (Past 12 Hours) Vital Signs Temp Pulse Resp BP Pulse Ox O2 Del Method 05/25/25 03:32 36.7 C 76 16 108/67 97 Room Air 05/24/25 23:22 36.7 C 77 16 109/68 97 Room Air 05/24/25 21:00 36.6 C 82 16 114/70 98 Room Air
[2025-05-25 11:56] VITALS: RESP 16
[2025-05-25] MEDS: IRON SUCROSE 200 MG in SODIUM CHLORIDE 0.9% 100 ML IV ONE (14:43)
[2025-05-25 15:41] LABS: Hematocrit (blood only) 23.9 % (37.0-47.0); Hemoglobin 8.2 g/dL (12.0-16.0); Immature Granulocytes # (auto) 0.23 K/uL (0.01-0.20); Immature Granulocytes % (auto) 1.8 %; Mean Corpuscular Hemoglobin 31.3 pg (25.0-34.0); Mean Corpuscular Volume 91.2 fL (80.0-100.0); Platelet Count 129 K/uL (130-400); RDW Standard Deviation 45.6 fL (36.4-46.3); Red Blood Count 2.62 M/uL (4.20-5.40); White Blood Count 12.51 K/ul (4.8-10.8)
[2025-05-25 16:41] VITALS: BP 114/71; PULSE 76; TEMP 98.1; O2SAT 96
--- NOTE | 2025-05-29 09:43 | Discharge Summary ---
Date of Service May 29, 2025 Admission HPI Per Admitting Provider 45 F P0000 at 39 weeks presents for IOL. GBS is negative. Discharge Data Consultations 05/21/25 09:10 Consult Anesthesiology Stat Procedures Performed Operation Date: 05/23/25 15:30 Actual Procedures p Dilatation and Curettage - Manfred Hernandez MD Hospital Course (1) Retained placenta or amniotic membrane after delivery without hemorrhage: Manual removal of placenta and curettage of uterus done
== END 2025-05-25 19:00 | disposition home health service (06) | DRG 798 ==
LOC: 4S1 07:45 → 4E2 05-24 17:09
DX: O70.0 First degree perineal laceration during delivery; Z3A.39 39 weeks gestation of pregnancy; O09.813 Supervision of pregnancy resulting from assisted reproductive technology, third trimester; O72.2 Delayed and secondary postpartum hemorrhage; Z88.2 Allergy status to sulfonamides; Z37.0 Single live birth; Z88.6 Allergy status to analgesic agent